=== PATIENT | male | born 1985 | race Caucasian/White ===

== ENCOUNTER 2016-05-20 10:12 | Inpatient (IN) | payer SELFPAY ==
[~2016-05-20] VITALS: Ht 182.9 cm; Wt 86.2 kg
[2016-05-20] VITALS (7 sets, daily range): BP systolic 125–148; BP diastolic 71–98; PULSE 89–119; RESP 16; TEMP 96.7–99.2; O2SAT 97–100
[~2016-05-20 10:12] MED LIST: BACT800T5 PO; CLIN150 PO; IBUP600T26 PO
[2016-05-20] MEDS ORDERED: ACETAMINOPHEN/HYDROcodone 325 MG/5 MG TAB PO ONE (11:00)
[2016-05-20] MEDS ORDERED: VANCOMYCIN INJ 1,000 MG in SODIUM CHLOR 0.9% 250 ML INJ 250 ML IV ONE (11:00)
--- NOTE | 2016-05-20 11:03 | PD ---
HPI Chief Complaint: Injury Time Seen by Provider: 10:30 Travel History International Travel<30 days: No Contact w/Intl Traveler<30days: No Traveled to known affect area: No History of Present Illness HPI This patient complains of injury and infection to his right foot. He says that 4 days ago he dropped a chainsaw from a height of about 2 feet onto his right foot. Chainsaw which she had not operating at the time. Shortly after it became red and swollen and started having red streaks going up his leg. He reports subjective fever. Symptoms severity is moderate. No alleviating factors. He denies medical history or any history of IV drug abuse. PFSH Past Medical History Medical History: Denies Significant Hx Diminished Hearing: No Tetanus Vaccination: < 5 Years Past Surgical History Surgical History: No Previous Surgery Social History Alcohol Use: No Tobacco Use: No Substance Use: No Allergies-Medications (Allergen,Severity, Reaction): Coded Allergies: *MDRO Multi-Drug Resistant Organism (Unverified Adverse Reaction, Unknown , 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 Reported Meds & Prescriptions Reported Meds & Active Scripts Active No Active Prescriptions or Reported Medications Review of Systems General / Constitutional: Positive: Fever Eyes: No: Visual changes HENT: No: Headaches Cardiovascular: No: Chest Pain or Discomfort Respiratory: No: Shortness of Breath Gastrointestinal: No: Abdominal Pain Genitourinary: No: Dysuria Musculoskeletal: Positive: Edema, Pain Skin: No Rash Neurologic: No: Weakness Psychiatric: No: Depression Endocrine: No: Polydipsia Hematologic/Lymphatic: No: Easy Bruising Physical Exam Narrative GENERAL: Well-nourished, well-developed patient with right foot pain and swelling . SKIN: Warm and dry. HEAD: Atraumatic. Normocephalic. EYES: Pupils equal and round. No scleral icterus. No injection or drainage. ENT: No nasal bleeding or discharge. Mucous membranes pink and moist. NECK: Trachea midline. No JVD. CARDIOVASCULAR: Regular rate and rhythm. No murmur appreciated. RESPIRATORY: No accessory muscle use. Clear to auscultation. Breath sounds equal bilaterally. GASTROINTESTINAL: Abdomen soft, non-tender, nondistended. Hepatic and splenic margins not palpable. MUSCULOSKELETAL: Patient has a large abscess on the dorsum of the right foot. It is fluctuant. No active drainage. He has macular erythema across the foot. He is got lymphangitis spreading up the right leg to the level of the distal thigh. No clubbing. No cyanosis. No edema. NEUROLOGICAL: Awake and alert. No obvious cranial nerve deficits. Motor grossly within normal limits. Normal speech. PSYCHIATRIC: Appropriate mood and affect; insight and judgment normal. Data Data Last Documented VS Vital Signs Date Time Temp Pulse Resp B/P Pulse Ox O2 Delivery O2 Flow Rate FiO2 05/20/16 10:22 16 100 Room Air 05/20/16 10:18 99.2 119 148/98 Orders Iv Access Insert/Monitor (05/20/16 10:55) Complete Blood Count With Diff (05/20/16 10:55) Basic Metabolic Panel (Bmp) (05/20/16 10:55) Wound Culture And Gram Stain (05/20/16 10:55) Foot, Complete ([id number]) (05/20/16 ) Acetamin-Hydrocod 325-5 Mg (Pegram 5-325 (05/20/16 11:00) Vancomycin Inj (Vancomycin Inj) (05/20/16 11:00) Admit To Inpatient (05/20/16 ) Vital Signs (Adult) Q4H (05/20/16 11:46) Activity Oob With Assistance (05/20/16 11:46) Diet Regular Basic (05/20/16 Lunch) Sodium Chloride 0.9% Flush (Ns Flush) (05/20/16 12:00) Sodium Chloride 0.9% Flush (Ns Flush) (05/20/16 21:00) Ondansetron Inj (Zofran Inj) (05/20/16 12:00) Magnesium Hydroxide Liq (Milk Of Magnesi (05/20/16 12:00) Complete Blood Count With Diff (05/21/16 06:00) Heparin Inj (Heparin Inj) (05/20/16 12:00) Naloxone Inj (Narcan Inj) (05/20/16 12:00) Inpatient Certification (05/20/16 ) Vancomycin Consult Pharmacy (Vancomycin (05/20/16 12:00) Piperacil-Tazo 3.375 Gm Premix (Zosyn 3. (05/20/16 12:00) Admit Order (Ed Use Only) (05/20/16 11:51) Labs Laboratory Tests Test 05/20/16 11:00 White Blood Count 21.4 TH/MM3 Red Blood Count 5.77 MIL/MM3 Hemoglobin 15.9 GM/DL Hematocrit 47.9 % Mean Corpuscular Volume 82.9 FL Mean Corpuscular Hemoglobin 27.5 PG Mean Corpuscular Hemoglobin 33.1 % Concent Red Cell Distribution Width 13.2 % Platelet Count 332 TH/MM3 Mean Platelet Volume 8.2 FL Neutrophils (%) (Auto) 77.3 % Lymphocytes (%) (Auto) 12.6 % Monocytes (%) (Auto) 7.2 % Eosinophils (%) (Auto) 1.1 % Basophils (%) (Auto) 1.8 % Neutrophils # (Auto) 16.6 TH/MM3 Lymphocytes # (Auto) 2.7 TH/MM3 Monocytes # (Auto) 1.5 TH/MM3 Eosinophils # (Auto) 0.2 TH/MM3 Basophils # (Auto) 0.4 TH/MM3 CBC Comment DIFF FINAL Differential Comment Sodium Level 135 MEQ/L Potassium Level 4.6 MEQ/L Chloride Level 97 MEQ/L Carbon Dioxide Level 27.1 MEQ/L Anion Gap 11 MEQ/L Blood Urea Nitrogen 11 MG/DL Creatinine 1.30 MG/DL Estimat Glomerular Filtration 64 ML/MIN Rate Random Glucose 101 MG/DL Calcium Level 9.2 MG/DL [facility] Medical Decision Making Medical Screen Exam Complete: Yes Emergency Medical Condition: Yes Medical Record Reviewed: Yes Differential Diagnosis Foot abscess, cellulitis, sepsis Narrative Course I have reviewed the patient's electronic medical record. IV placed CBC shows leukocytosis of 21,000 Metabolic profile is normal Coagulation studies are normal We discussed incision and drainage and he gives verbal agreement to that. It is definitely necessary as he has a huge fluctuant abscess on his foot. Procedure note: I numbed up the right foot abscess with ethyl chloride spray. I incised it with an 11 blade scalpel. I drained out a very large quantity of thick pus. I obtained a wound culture. After draining out as much pus as possible procedure was ended. He tolerated it well. I gave him 2 pain pills I gave him 1 g IV vancomycin I reviewed his right foot x-rays which show soft tissue swelling without fracture I reviewed the case with hospitalist will admit This is too involved to treat as outpatient with oral antibiotics. Diagnosis Primary Impression: Cellulitis of left foot Additional Impressions: Abscess of left foot Lymphangitis Admitting Information Admitting Physician Requests: Admit Scripts No Active Prescriptions or Reported Meds Marques Hamilton MD May 20, 2016 11:03
[2016-05-20 11:20] LABS: AUTOMATED NEUTROPHIL # 16.6 TH/MM3 (1.8-7.7); BASOPHIL # 0.4 TH/MM3 (0-0.2); BASOPHIL % 1.8 % (0.0-2.0); EOSINOPHIL # 0.2 TH/MM3 (0-0.4); EOSINOPHIL % 1.1 % (0.0-4.0); HEMATOCRIT 47.9 % (39.0-51.0); LYMPH % 12.6 % (9.0-44.0); LYMPHOCYTE # 2.7 TH/MM3 (1.0-4.8); MEAN CELL VOLUME 82.9 FL (80.0-100.0); MEAN CORPUSCULAR HEMOGLOBIN 27.5 PG (27.0-34.0); MEAN CORPUSCULAR HGB CONC 33.1 % (32.0-36.0); MONO % 7.2 % (0.0-8.0); NEUT % 77.3 % (16.0-70.0); PLATELET COUNT 332 TH/MM3 (150-450); RED BLOOD COUNT 5.77 MIL/MM3 (4.50-5.90); RED CELL DISTRIBUTION WIDTH 13.2 % (11.6-17.2); WHITE BLOOD COUNT 21.4 TH/MM3 (4.0-11.0)
[2016-05-20 11:23] LABS: HEMO FLAGS DIFF FINAL
[2016-05-20 11:34] LABS: POTASSIUM 4.6 MEQ/L (3.5-5.1)
--- NOTE | 2016-05-20 11:36 | RADHPO ---
EXAM DATE/TIME: 05/20/2016 10:59 [facility] COMPARISON: No previous studies available for comparison. INDICATIONS : Patient dropped chain saw on anterior left 2nd thru 4th metatarsal area 5 days ago: now red swollen and draining with reddness traveling up his lower leg. MEDICAL HISTORY : None. SURGICAL HISTORY : None. ENCOUNTER: Subsequent ACUITY: 4 - 6 days PAIN SCORE: 10/10 LOCATION: Left foot anterior FINDINGS: There is diffuse soft tissue swelling around the foot. However, the bony structures are grossly intac t. No definite acute fracture or joint dislocation is demonstrated. No foreign bodies are demonstrate d. CONCLUSION: Diffuse soft tissue swelling. Tito Briseno MD on May 20, 2016 at 11:34 Board Certified Radiologist. This report was verified electronically.
[2016-05-20 11:39] LABS: BICARBONATE 27.1 MEQ/L (21.0-32.0)
[2016-05-20] MEDS ORDERED: Vancomycin Consult Pharmacy 1 EA OTHER SCH (12:00)
[2016-05-20] MEDS ORDERED: ONDANSETRON HCL 4 MG/2 ML VIAL IVP PRN (12:00)
[2016-05-20] MEDS: HEPARIN SODIUM - SQ 10,000 UNITS/ML VIAL SQ SCH (12:00)
[2016-05-20] MEDS ORDERED: NALOXONE HCL 0.4 MG/ML AMP IV PRN (12:00)
[2016-05-20] MEDS ORDERED: MAGNESIUM HYDROXIDE SUSP 30 ML CUP PO PRN (12:00)
[2016-05-20] MEDS: PIPERACIL-TAZO 3.375 GM PREMIX 50 ML IV SCH ×2 (12:01→18:30)
--- NOTE | 2016-05-20 14:44 | HHI.HP ---
[facility] No Primary Care Physician Admission Diagnosis L foot cellulitis/abcess with lymphangitis Diagnoses: (1) Lymphangitis (2) Abscess of left foot (3) Cellulitis of left foot (4) Sepsis Chief Complaint: left foot wound/infection Travel History International Travel<30 Days: No Contact w/Intl Traveler <30 Da: No Traveled to Known Affected Are: No Sepsis Criteria SIRS Criteria (2 or more): Heart rate over 90, WBC > 96273, < 4000 or > 10% bands Sepsis Criteria (SIRS+source): Infect source susp/known Criteria Outcome: Meets sepsis criteria History of Present Illness The patient is a 31-year-old male who presented to the emergency department for evaluation of increased pain and swelling of his left foot. He states that on he was using a chainsaw and dropped the chainsaw onto his foot. Change was not running at the time. He states that over the next few days he developed increasing redness, swelling, and pain in the left foot. There was no drainage prior to arrival at the ER. Incision and drainage was done in the ER and a large amount of pustular material was expressed. He does report subjective fever. Patient has no other complaints at this time. Review of Systems Constitutional: COMPLAINS OF: Fever, DENIES: Chills, Night Sweats Eyes: DENIES: Blurred vision, Vision loss Ears, nose, mouth, throat: DENIES: Hearing loss Respiratory: DENIES: Cough, Wheezing, Sputum production, Shortness of breath Cardiovascular: DENIES: Chest pain, Palpitations, Dyspnea on Exertion, Lower Extremity Edema Gastrointestinal: DENIES: Abdominal pain, Constipation, Diarrhea, Nausea, Vomiting Genitourinary: DENIES: Urinary frequency, Urinary incontinence, Urgency, Hematuria, Dysuria, Nocturia Musculoskeletal: DENIES: Joint pain, Muscle aches Integumentary: DENIES: Pruritus Hematologic/lymphatic: DENIES: Bruising Neurologic: DENIES: Headache Past Family Social History Past Medical History Denies Past Surgical History Denies Reported Medications None Allergies: Coded Allergies: *MDRO Multi-Drug Resistant Organism (Unverified Adverse Reaction, Unknown , 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 Family History Denies Social History Quit smoking 4 months ago. Reports occasional alcohol use. Denies illicit drug use. Physical Exam Vital Signs Vital Signs Date Time Temp Pulse Resp B/P Pulse Ox O2 Delivery O2 Flow Rate FiO2 05/20/16 12:02 95 16 129/75 97 Room Air 05/20/16 10:22 16 100 Room Air 05/20/16 10:18 99.2 119 16 148/98 100 Physical Exam GENERAL: Well-nourished, well-developed [] in no acute distress. HEENT: Normocephalic, atraumatic. Pupils equal, round and reactive. Extraocular movements intact. No scleral icterus. No injection or drainage. Oropharynx is clear. Mucous membranes are moist. CARDIOVASCULAR: Regular rate and rhythm without murmurs, gallops, or rubs. RESPIRATORY: Clear to auscultation. No wheezes, rales, or rhonchi. Breathing is non-labored. GASTROINTESTINAL: Abdomen soft, non-tender, nondistended. EXTREMITIES: No right lower extremity edema. Left foot with significant erythema surrounding a central wound with pustular drainage. The dorsum of the left foot is swollen. PSYCH: Alert and oriented x 3. Laboratory Laboratory Tests Test 05/20/16 11:00 White Blood Count 21.4 Red Blood Count 5.77 Hemoglobin 15.9 Hematocrit 47.9 Mean Corpuscular Volume 82.9 Mean Corpuscular Hemoglobin 27.5 Mean Corpuscular Hemoglobin 33.1 Concent Red Cell Distribution Width 13.2 Platelet Count 332 Mean Platelet Volume 8.2 Neutrophils (%) (Auto) 77.3 Lymphocytes (%) (Auto) 12.6 Monocytes (%) (Auto) 7.2 Eosinophils (%) (Auto) 1.1 Basophils (%) (Auto) 1.8 Neutrophils # (Auto) 16.6 Lymphocytes # (Auto) 2.7 Monocytes # (Auto) 1.5 Eosinophils # (Auto) 0.2 Basophils # (Auto) 0.4 CBC Comment DIFF FINAL Differential Comment Sodium Level 135 Potassium Level 4.6 Chloride Level 97 Carbon Dioxide Level 27.1 Anion Gap 11 Blood Urea Nitrogen 11 Creatinine 1.30 Estimat Glomerular Filtration 64 Rate Random Glucose 101 Calcium Level 9.2 Date/Time Procedure Status Source Growth 05/20/16 11:00 Gram Stain Received Wound Foot Pending 05/20/16 11:00 Wound Culture Received Wound Foot Pending Result Diagram: 05/20/16 1100 05/20/16 1100 Imaging Last Impressions Foot X-Ray 05/20/16 0000 Signed Impressions: Service Date/Time: April 10:59 - CONCLUSION: Diffuse soft tissue swelling. Tito Briseno MD Assessment and Plan Assessment and Plan 1. Cellulitis/abscess, left foot: Status post incision and drainage in the ER. Continue IV antibiotics. Continue pain control. Consult podiatry. 2. DVT prophylaxis: Lovenox. Marques Kaye MD May 20, 2016 14:44
[2016-05-20] MEDS ORDERED: ACETAMINOPHEN/HYDROcodone 325 MG/5 MG TAB PO PRN (14:45)
[2016-05-20] MEDS: ACETAMINOPHEN/HYDROcodone 325 MG/7.5 MG TAB PO PRN ×2 (16:58→22:50)
--- NOTE | 2016-05-20 19:02 | PD.CONS ---
History of Present Illness Service Podiatry Consult Requested By Dr Kaye Reason for Consult Abscess L foot Primary Care Physician No Primary Care Physician Diagnoses: History of Present Illness 31-year-old male seen with increasing pain, redness, and swelling of his left foot. He states that on 05/15/16 he was using a chainsaw and dropped the chainsaw onto his foot. He says the saw was not running at the time. He states that over the next few days he developed increasing redness, swelling, and pain in the left foot. He says the blackened area in the center just started looking this way yesterday and redness up to his groin is what brought him in, along with increasing pain. here was no drainage prior to arrival at the ER. Incision and drainage was done in the ER and a large amount of pustular material was expressed. He does report subjective fever. Patient has no other complaints at this time. Past Family Social History Allergies: Coded Allergies: *MDRO Multi-Drug Resistant Organism (Unverified Adverse Reaction, Unknown , 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 Past Medical History denies Past Surgical History denies Active Ordered Medications Current Medications Medications (Trade) Dose Ordered Sig/Bonny Route Start Time Stop Time Status Last Admin (NS Flush) 2 ml UNSCH PRN FLUSH 05/20/16 12:00 (NS Flush) 2 ml BID FLUSH 05/20/16 21:00 (Zofran Inj) 4 mg Q6H PRN IVP 05/20/16 12:00 (Milk Of Magnesia Liq) 30 ml Q12H PRN PO 05/20/16 12:00 (Heparin Inj) 5,000 units Q12H SQ 05/20/16 12:00 05/20/16 12:00 Naloxone HCl 0.4 mg 0.4 mg UNSCH PRN IV 05/20/16 12:00 Pharmacy Profile Note 0 ml @ 0 mls/hr UNSCH OTHER 05/20/16 12:00 Piperacillin Sod/ Tazobactam Sod 50 ml @ 100 mls/hr Q6H IV 05/20/16 12:00 05/20/16 18:30 (Vancomycin Inj/ NS 250 ml Inj) 250 ml @ 250 mls/hr Q12H IV 05/20/16 23:00 Miscellaneous Information SPECIFIC LAB TO BE DRAWN:VANCOMY... ONCE ONCE XX 05/21/16 22:45 05/21/16 22:46 ([place] 5-325 Mg) 1 tab Q4H PRN PO 05/20/16 14:45 ([place] 7.5-325 Mg) 1 tab Q4H PRN PO 05/20/16 14:45 05/20/16 16:58 Family History denies Social History used to smoke, no drugs, occasional alcohol Physical Exam Vital Signs Vital Signs Date Time Temp Pulse Resp B/P Pulse Ox O2 Delivery O2 Flow Rate FiO2 05/20/16 16:00 96.8 05/20/16 14:00 97.3 93 16 125/82 98 05/20/16 12:02 95 16 129/75 97 Room Air 05/20/16 10:22 16 100 Room Air 05/20/16 10:18 99.2 119 16 148/98 100 Physical Exam Neurovascularly intact. Severe pain to dorsal medial left midfoot area with large 2cm diameter necrotic area, very foul odor, milky purulence present. A poke hole area is noted in center of necrotic tissue from ED culture. Ascending streaking erythema to groin area with concentrated erythema surrounding the EHL area at midfoot. Upon I&D, purulent material is expressed from what appears to be EHL tendon sheath both distally and proximally. Able to flex and extend digits. Laboratory Laboratory Tests Test 05/20/16 11:00 White Blood Count 21.4 Red Blood Count 5.77 Hemoglobin 15.9 Hematocrit 47.9 Mean Corpuscular Volume 82.9 Mean Corpuscular Hemoglobin 27.5 Mean Corpuscular Hemoglobin 33.1 Concent Red Cell Distribution Width 13.2 Platelet Count 332 Mean Platelet Volume 8.2 Neutrophils (%) (Auto) 77.3 Lymphocytes (%) (Auto) 12.6 Monocytes (%) (Auto) 7.2 Eosinophils (%) (Auto) 1.1 Basophils (%) (Auto) 1.8 Neutrophils # (Auto) 16.6 Lymphocytes # (Auto) 2.7 Monocytes # (Auto) 1.5 Eosinophils # (Auto) 0.2 Basophils # (Auto) 0.4 CBC Comment DIFF FINAL Differential Comment Sodium Level 135 Potassium Level 4.6 Chloride Level 97 Carbon Dioxide Level 27.1 Anion Gap 11 Blood Urea Nitrogen 11 Creatinine 1.30 Estimat Glomerular Filtration 64 Rate Random Glucose 101 Calcium Level 9.2 Date/Time Procedure Status Source Growth 05/20/16 11:00 Gram Stain Received Wound Foot Pending 05/20/16 11:00 Wound Culture Received Wound Foot Pending Result Diagram: 05/20/16 1100 05/20/16 1100 Imaging Last Impressions Foot X-Ray 05/20/16 0000 Signed Impressions: Service Date/Time: April 10:59 - CONCLUSION: Diffuse soft tissue swelling. Tito Briseno MD Assessment and Plan Assessment and Plan Deep abscess L foot To transfer to [facility] for I&D tomorrow with Dr Huitron Discussed with patient I felt that a more thorough bedside I&D was necessary to gain further wound stability until surgery is able to occur. Incision was made with #15 and necrotic tissue excised from dorsal wound area centrally using scissor/pickup. Purulence expressed and wound copiously irrigated with wound wash, followed by betadine wet to dry dressing applied. Continue IV antibiotics. Discussed Condition With Rhona Kaye and Oleksandr Johnson DPM May 20, 2016 19:02
[2016-05-20] MEDS: VANCOMYCIN 1,000 MG/NS 250 ML IV SCH ×2 (22:56)
[2016-05-20] MEDS: SODIUM CHLORIDE 0.9% FLUSH 5 ML FLUSH FLUSH SCH (22:56)
[2016-05-21] MEDS: PIPERACIL-TAZO 3.375 GM PREMIX 50 ML IV SCH ×4 (01:49→18:00)
[2016-05-21] MEDS: HEPARIN SODIUM - SQ 10,000 UNITS/ML VIAL SQ SCH (01:51)
[2016-05-21 04:49] VITALS: BP 127/71; PULSE 88; RESP 16; TEMP 98.1; O2SAT 98
--- NOTE | 2016-05-21 07:02 | PD.POD ---
Subjective Pain score: 3 Remarks left foot pain remains the same Past Med/Surg/Social History Social History Smoking Status: Former Smoker Objective Vital Signs Vital Signs Date Time Temp Pulse Resp B/P Pulse Ox O2 Delivery O2 Flow Rate FiO2 05/21/16 04:49 98.1 88 16 127/71 98 05/20/16 23:09 98.9 94 16 129/71 100 05/20/16 21:15 97.5 104 16 148/78 100 05/20/16 20:35 96.7 89 16 137/75 100 05/20/16 16:00 96.8 05/20/16 14:00 97.3 93 16 125/82 98 05/20/16 12:02 95 16 129/75 97 Room Air 05/20/16 10:22 16 100 Room Air 05/20/16 10:18 99.2 119 16 148/98 100 Coded Allergies: *MDRO Multi-Drug Resistant Organism (Unverified Adverse Reaction, Unknown , 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 Medications and IVs Administered Medications Medications (Trade) Dose Ordered Sig/Bonny Route PRN Reason Start Time Stop Time Status Last Admin Dose Admin IV Flush (NS Flush) 2 ml BID FLUSH 05/20/16 21:00 05/20/16 22:56 Heparin Sodium (Porcine) 5000 units 5,000 units Q12H SQ 05/20/16 12:00 05/21/16 01:51 Piperacillin Sod/ Tazobactam Sod 50 ml @ 100 mls/hr Q6H IV 05/20/16 12:00 05/21/16 06:11 Vancomycin HCl/ Sodium Chloride (Vancomycin Inj/ NS 250 ml Inj) 250 ml @ 250 mls/hr Q12H IV 05/20/16 23:00 05/20/16 22:56 Acetaminophen/ Hydrocodone Bitart ([place] 7.5-325 Mg) 1 tab Q4H PRN PO PAIN SCALE 7 TO 10 05/20/16 14:45 05/20/16 22:50 Other Results Laboratory Tests Test 05/20/16 11:00 White Blood Count 21.4 TH/MM3 Red Blood Count 5.77 MIL/MM3 Hemoglobin 15.9 GM/DL Hematocrit 47.9 % Mean Corpuscular Volume 82.9 FL Mean Corpuscular Hemoglobin 27.5 PG Mean Corpuscular Hemoglobin 33.1 % Concent Red Cell Distribution Width 13.2 % Platelet Count 332 TH/MM3 Mean Platelet Volume 8.2 FL Neutrophils (%) (Auto) 77.3 % Lymphocytes (%) (Auto) 12.6 % Monocytes (%) (Auto) 7.2 % Eosinophils (%) (Auto) 1.1 % Basophils (%) (Auto) 1.8 % Neutrophils # (Auto) 16.6 TH/MM3 Lymphocytes # (Auto) 2.7 TH/MM3 Monocytes # (Auto) 1.5 TH/MM3 Eosinophils # (Auto) 0.2 TH/MM3 Basophils # (Auto) 0.4 TH/MM3 CBC Comment DIFF FINAL Differential Comment Laboratory Tests Test 05/20/16 11:00 Sodium Level 135 MEQ/L Potassium Level 4.6 MEQ/L Chloride Level 97 MEQ/L Carbon Dioxide Level 27.1 MEQ/L Anion Gap 11 MEQ/L Blood Urea Nitrogen 11 MG/DL Creatinine 1.30 MG/DL Estimat Glomerular Filtration 64 ML/MIN Rate Random Glucose 101 MG/DL Calcium Level 9.2 MG/DL Microbiology Date/Time Procedure Status Source Growth 05/20/16 11:00 Gram Stain Received Wound Foot Pending 05/20/16 11:00 Wound Culture Received Wound Foot Pending Last 72 hours Impressions Foot X-Ray 05/20/16 0000 Signed Impressions: Service Date/Time: April 10:59 - CONCLUSION: Diffuse soft tissue swelling. Tito Briseno MD Exam-Podiatry Constitutional Details left foot severe redness edema central eschar with necrosis dorsum foot severe pain with pressure, redness localized to the foot, pulses intact, no crepitus with ROM ft and ankle Assessment & Plan A/P Left foot ulcer abscess OR today for I and D. Reviewed risks and benefits. IV ABX for now, possible 2-3 weeks pending WBC trend and C and S. Bhupendra Huitron DPM May 21, 2016 07:02
[2016-05-21 07:26] LABS: AUTOMATED NEUTROPHIL # 9.6 TH/MM3 (1.8-7.7); BASOPHIL # 0.1 TH/MM3 (0-0.2); BASOPHIL % 0.8 % (0.0-2.0); EOSINOPHIL # 0.4 TH/MM3 (0-0.4); EOSINOPHIL % 2.8 % (0.0-4.0); HEMO FLAGS DIFF FINAL; LYMPH % 18.8 % (9.0-44.0); LYMPHOCYTE # 2.6 TH/MM3 (1.0-4.8); MEAN CELL VOLUME 82.7 FL (80.0-100.0); MEAN CORPUSCULAR HEMOGLOBIN 28.4 PG (27.0-34.0); MEAN CORPUSCULAR HGB CONC 34.4 % (32.0-36.0); MONO % 9.3 % (0.0-8.0); NEUT % 68.3 % (16.0-70.0); PLATELET COUNT 324 TH/MM3 (150-450); RED BLOOD COUNT 4.96 MIL/MM3 (4.50-5.90); RED CELL DISTRIBUTION WIDTH 13.8 % (11.6-17.2)
[2016-05-21 08:00] VITALS: BP 127/69; PULSE 94; RESP 18; TEMP 98.2; O2SAT 98
[2016-05-21] MEDS: ACETAMINOPHEN/HYDROcodone 325 MG/7.5 MG TAB PO PRN ×3 (08:45→20:23)
[2016-05-21] MEDS: SODIUM CHLORIDE 0.9% FLUSH 5 ML FLUSH FLUSH SCH ×2 (09:00→20:52)
[2016-05-21] MEDS ORDERED: TEMAZEPAM 15 MG CAP PO PRN (09:30)
[2016-05-21] MEDS ORDERED: ONDANSETRON HCL 4 MG/2 ML VIAL IV PRN (09:30)
--- NOTE | 2016-05-21 09:31 | HHI.PR ---
Subjective Remarks Follow-up left foot ulcer/abscess 05/21/16-patient seen and examined, complained of left foot pain. Currently afebrile and nothing by mouth pending trip to the OR for incision and drainage by podiatry today. Objective Vitals Vital Signs Date Time Temp Pulse Resp B/P Pulse Ox O2 Delivery O2 Flow Rate FiO2 05/21/16 08:00 98.2 94 18 127/69 98 05/21/16 04:49 98.1 88 16 127/71 98 05/20/16 23:09 98.9 94 16 129/71 100 05/20/16 21:15 97.5 104 16 148/78 100 05/20/16 20:35 96.7 89 16 137/75 100 05/20/16 16:00 96.8 05/20/16 14:00 97.3 93 16 125/82 98 05/20/16 12:02 95 16 129/75 97 Room Air 05/20/16 10:22 16 100 Room Air 05/20/16 10:18 99.2 119 16 148/98 100 I/O 05/20/16 05/20/16 05/20/16 05/21/16 05/21/16 05/21/16 07:00 15:00 23:00 07:00 15:00 23:00 Intake Total 300 ml 480 ml 600 ml Output Total 350 ml Balance 300 ml 480 ml 250 ml Intake Oral 480 ml 600 ml IV Total 300 ml Output Urine Total 350 ml # Voids 1 # Bowel Movements 0 Result Diagram: 05/21/16 0712 05/21/16 0712 Imaging Last Impressions Foot X-Ray 05/20/16 0000 Signed Impressions: Service Date/Time: April 10:59 - CONCLUSION: Diffuse soft tissue swelling. Tito Briseno MD Objective Remarks GENERAL: NAD SKIN: Warm and dry. HEAD: Normocephalic. EYES: No scleral icterus. No injection or drainage. NECK: Supple, trachea midline. No JVD or lymphadenopathy. CARDIOVASCULAR: Regular rate and rhythm without murmurs, gallops, or rubs. RESPIRATORY: Breath sounds equal bilaterally. No accessory muscle use. GASTROINTESTINAL: Abdomen soft, non-tender, nondistended. MUSCULOSKELETAL: No cyanosis, or edema. dressing over left foot-neurovascular intact BACK: Nontender without obvious deformity. No CVA tenderness. A/P Problem List: (1) Lymphangitis ICD Code: I89.1 Status: Acute (2) Abscess of left foot ICD Code: L02.612 Status: Acute (3) Cellulitis of left foot ICD Code: L03.116 Status: Acute (4) Sepsis ICD Code: A41.9 Status: Acute Assessment and Plan 31-year-old male with 1-Left foot ulcer/abscess/cellulitis: Currently on IV antibiotics including vancomycin and Zosyn. Appreciate input from podiatry and plan for incision and drainage today 05/21/16. Monitor postop wound culture. Likely patient will need antibiotics 2-3 weeks postprocedure. If indicated will consult infectious disease specialist. Continue current pain management. 2-Leukocytosis: Secondary to above infectious process and treat as such 3-DVT prophylaxis: Hold heparin Addison Myles MD May 21, 2016 09:31 Addison Myles MD May 21, 2016 09:31
[2016-05-21] MEDS ORDERED: ACETAMINOPHEN 325 MG TAB PO PRN (10:00)
[2016-05-21] MEDS ORDERED: BUPIVACAINE HCL PF 0.25% 30 ML VIAL ONE (10:46)
[2016-05-21] MEDS ORDERED: GADODIAMIDE PF 287 MG/ML 20 ML VIAL (for RAD MRI) IV ONE (11:39)
[2016-05-21] MEDS: VANCOMYCIN 1,000 MG/NS 250 ML IV SCH ×2 (11:58)
[2016-05-21] MEDS ORDERED: LACTATED RINGER'S 1000 ML INJ 1,000 ML IV ONE (12:00)
[2016-05-21] MEDS ORDERED: ONDANSETRON HCL 4 MG/2 ML VIAL IV PUSH ONE (12:00)
[2016-05-21] MEDS ORDERED: PROPOFOL 200 MG/20 ML AMP IV ONE (12:00)
[2016-05-21] MEDS ORDERED: MIDAZOLAM HCL 2 MG/2 ML VIAL ONE (12:09)
[2016-05-21] MEDS ORDERED: ACETAMINOPHEN 1000 MG/100 ML VIAL IV ONE (12:09)
--- NOTE | 2016-05-21 12:11 | RADRPT ---
EXAM DATE/TIME: 05/21/2016 11:12 [facility] COMPARISON: FOOT LEFT COMPLETE ([id number]), May 20, 2016, 10:59. INDICATIONS : Osteomyelitis. CONTRAST: 16 cc Omniscan (gadodiamide) IV MEDICAL HISTORY : None. SURGICAL HISTORY : None. ENCOUNTER: Initial ACUITY: 4-6 days PAIN SCORE: 5/10 LOCATION: Left Foot TECHNIQUE: Multiplanar, multisequence MRI examination was performed without contrast and after the intravenous a dministration of gadolinium. FINDINGS: There is nonspecific soft tissue swelling dorsal to the metatarsals without fluid collection or mass or abscess. There is probable soft tissue discontinuity of the skin and overlying bandage ulceration or abrasion dorsal to the proximal base of the first metatarsal. Only structures are normal without e vidence of edema or osteomyelitis. CONCLUSION: Dorsal soft tissue swelling and soft tissue ulceration or defect dorsal medial along the base of the first metatarsal. No evidence of fluid collection or abscess formation and bony structures are intact with no evidence of osteomyelitis Pa Concepcion MD on May 21, 2016 at 12:00 Board Certified Radiologist. This report was verified electronically.
[2016-05-21] MEDS ORDERED: FAMOTIDINE 20 MG/2 ML VIAL ONE (12:12)
[2016-05-21] MEDS ORDERED: NEOMYCIN/POLYMYXIN 1 ML G.U. IRRIGANT IR ONE (12:48)
[2016-05-21] MEDS ORDERED: *morphine SULFATE 8 MG/ML PERIprocedure ONLY ONE ×2 (13:32→13:42)
[2016-05-21] MEDS ORDERED: fentaNYL CITRATE 250 MCG/5 ML AMP ONE (13:36)
[2016-05-21] MEDS ORDERED: DO NOT ADM ANY ANTICOAGULANT DRUGS XX PRN (14:00)
--- NOTE | 2016-05-21 15:21 | MP ---
cc: HAYDEE MOLINA DPM DATE OF SURGERY: 05/21/2016 PREOPERATIVE DIAGNOSIS Left foot abscess with ulcer. POSTOPERATIVE DIAGNOSIS Left foot abscess with ulcer. PROCEDURES PERFORMED Expansile incision, drainage and debridement left foot. ANESTHESIA General. TOURNIQUET TIME None. COMPLICATIONS None. ESTIMATED BLOOD LOSS Less than 50 mL. INJECTABLES 0.25% Marcaine plain, 20 cc. PROCEDURE IN DETAIL Under mild sedation the patient was brought into the operating room and placed on the operating table in the supine position. Following the induction of general anesthesia, local anesthesia was obtained about the patient's anterior ankle. The patient's left lower extremity was scrubbed, prepped and draped in the usual aseptic fashion. The foot was elevated and examined. There was noted to be extreme redness and a bulla-type formation with partial thickness ulceration at the dorsal aspect of the first metatarsal base. A linear incision was made at the apex of the necrotic ulcer and at the distal and proximal portion. Sharp and blunt dissection was carried down deep to the fascia. Digital dissection as well as sharp dissection took place, expanding the soft tissue planes at the dorsum of the foot of which there was noted to be a loculated abscess which was evacuated. All necrotic tissue was sharply excised. At the tendon sheath the EHL was noted to be intact. There was no extension of abscess into the tendon or bone. The joint appeared to be free with communication with the abscess. The wound was then flushed with one liter of normal saline pulse lavage. The wound was then loosely coapted and packed open. There was a central deficit measuring approximately 3.5 cm x 3.5 cm that probed down to the medial marginal vein, however, bone was not exposed. Packing placed. Xeroform placed on the wound, a compression bandage applied. All toes were pink. Minimal bleeding after compressive bandage. The patient is transferred from OR to PACU with all vital signs stable. Will continue to monitor the wound over the next 1-2 days. Given the severity of the infection there is a possibility he will need IV antibiotics. Will await the culture results and his progress. JIA Campbell/JORGE /1:26 PM /3:10 PM
[2016-05-21 15:27] VITALS: O2SAT 97
[2016-05-21 16:00] VITALS: BP 138/64; PULSE 90; RESP 18; TEMP 97.9; O2SAT 99
[2016-05-21 20:00] VITALS: BP 144/73; PULSE 99; RESP 18; TEMP 97.9; O2SAT 99
[2016-05-21 20:35] VITALS: O2SAT 98
[2016-05-21] MEDS ORDERED: PHARMACY ORDERED LAB XX ONE (22:45)
[2016-05-22] VITALS (8 sets, daily range): BP systolic 129–144; BP diastolic 60–98; PULSE 83–106; RESP 18–19; TEMP 97.5–99; O2SAT 96–100
[2016-05-22] MEDS: ACETAMINOPHEN/HYDROcodone 325 MG/7.5 MG TAB PO PRN ×4 (00:19→15:12)
[2016-05-22] MEDS: VANCOMYCIN 1,000 MG/NS 250 ML IV SCH ×6 (00:21→16:09)
[2016-05-22] MEDS: PIPERACIL-TAZO 3.375 GM PREMIX 50 ML IV SCH ×4 (00:27→17:06)
[2016-05-22] MEDS: HYDROmorphone HCL PF 1 MG/ML VIAL IV PUSH PRN ×5 (03:07→21:31)
[2016-05-22] MEDS: SODIUM CHLORIDE 0.9% FLUSH 5 ML FLUSH FLUSH SCH ×2 (08:44→20:33)
--- NOTE | 2016-05-22 09:15 | HHI.PR ---
Subjective Remarks Follow-up left foot ulcer/abscess 05/21/16-patient seen and examined, complained of left foot pain. Currently afebrile and nothing by mouth pending trip to the OR for incision and drainage by podiatry today. 05/22/16-patient seen and examined, no significant left foot pain. Afebrile and no complaint. s/p Expansile incision, drainage and debridement left foot. Case discussed with Dr. Lopez Objective Vitals Vital Signs Date Time Temp Pulse Resp B/P Pulse Ox O2 Delivery O2 Flow Rate FiO2 05/22/16 08:00 98.1 99 18 139/72 96 05/22/16 04:00 99.0 106 18 134/73 98 05/22/16 00:10 98.4 93 18 138/63 100 05/21/16 20:35 98 05/21/16 20:00 97.9 99 18 144/73 99 05/21/16 16:30 18 05/21/16 16:00 97.9 90 18 138/64 99 05/21/16 15:27 97 21 05/21/16 13:48 97.8 83 15 112/71 98 Room Air 05/21/16 13:30 83 15 123/76 98 Room Air 05/21/16 13:24 97.5 92 15 117/78 99 Room Air I/O 05/21/16 05/21/16 05/21/16 05/22/16 05/22/16 05/22/16 07:00 15:00 23:00 07:00 15:00 23:00 Intake Total 600 ml 450 ml 480 ml 480 ml Output Total 350 ml 10 ml 300 ml Balance 250 ml 440 ml 480 ml 180 ml Intake Oral 600 ml 480 ml 480 ml IV Total 150 ml 0 ml Other 300 ml Output Urine Total 350 ml 0 ml 300 ml Estimated Blood Loss 10 ml # Voids 1 # Bowel Movements 0 Result Diagram: 05/21/16 0712 05/21/16711 Objective Remarks GENERAL: NAD SKIN: Warm and dry. HEAD: Normocephalic. EYES: No scleral icterus. No injection or drainage. NECK: Supple, trachea midline. No JVD or lymphadenopathy. CARDIOVASCULAR: Regular rate and rhythm without murmurs, gallops, or rubs. RESPIRATORY: Breath sounds equal bilaterally. No accessory muscle use. GASTROINTESTINAL: Abdomen soft, non-tender, nondistended. MUSCULOSKELETAL: No cyanosis, or edema. dressing over left foot-neurovascular intact BACK: Nontender without obvious deformity. No CVA tenderness. Procedures 05/21/16 Status post Expansile incision, drainage and debridement left foot. A/P Problem List: (1) Lymphangitis ICD Code: I89.1 Status: Acute (2) Abscess of left foot ICD Code: L02.612 Status: Acute (3) Cellulitis of left foot ICD Code: L03.116 Status: Acute (4) Sepsis ICD Code: A41.9 Status: Acute Assessment and Plan 31-year-old male with 1-Left foot ulcer/abscess/cellulitis: s/p Expansile incision, drainage and debridement left foot 05/21/16 and management per podiatry. Currently on IV antibiotics including vancomycin and Zosyn. Monitor postop wound culture as pre wound culture positive for viridans strep group and staph. Likely patient will need antibiotics 2-3 weeks postprocedure. If indicated will consult infectious disease specialist. Continue current pain management. 2-Leukocytosis: Secondary to above infectious process and treat as such 3-DVT prophylaxis: Hold heparin Addison Myles MD May 22, 2016 09:15
--- NOTE | 2016-05-22 09:38 | PD.POD ---
Subjective Pain score: 7 Remarks left foot pain fluctuates, no new complaints Past Med/Surg/Social History Social History Smoking Status: Former Smoker Objective Vital Signs Vital Signs Date Time Temp Pulse Resp B/P Pulse Ox O2 Delivery O2 Flow Rate FiO2 05/22/16 08:00 98.1 99 18 139/72 96 05/22/16 04:00 99.0 106 18 134/73 98 05/22/16 00:10 98.4 93 18 138/63 100 05/21/16 20:35 98 05/21/16 20:00 97.9 99 18 144/73 99 05/21/16 16:30 18 05/21/16 16:00 97.9 90 18 138/64 99 05/21/16 15:27 97 21 05/21/16 13:48 97.8 83 15 112/71 98 Room Air 05/21/16 13:30 83 15 123/76 98 Room Air 05/21/16 13:24 97.5 92 15 117/78 99 Room Air Coded Allergies: *MDRO Multi-Drug Resistant Organism (Unverified Adverse Reaction, Unknown , 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 Exam-Podiatry Remarks left foot moderate redness edema, wound is open and draining, packing intact, no further necrosis, central ulcer dorsum foot 3cm 2cm down to fascia deep vein exposed redness localized to the foot, pulses intact, no crepitus with ROM ft and ankle Assessment & Plan A/P Left foot ulcer abscess SP for I and D 05/21. Reviewed cx strep and staph, WBC trending down, will change packing tomorrow, infection is still impressive, FU tomorrow Bhupendra Huitron DPM May 22, 2016 09:38
[2016-05-23] VITALS (8 sets, daily range): BP systolic 125–146; BP diastolic 64–75; PULSE 78–100; RESP 18–20; TEMP 97.4–98.2; O2SAT 96–99
[2016-05-23] MEDS: VANCOMYCIN 1,000 MG/NS 250 ML IV SCH ×8 (00:36→23:11)
[2016-05-23] MEDS: PIPERACIL-TAZO 3.375 GM PREMIX 50 ML IV SCH ×4 (00:39→17:23)
[2016-05-23] MEDS: ACETAMINOPHEN/HYDROcodone 325 MG/7.5 MG TAB PO PRN ×4 (01:34→20:56)
[2016-05-23] MEDS: HYDROmorphone HCL PF 1 MG/ML VIAL IV PUSH PRN ×5 (03:41→23:09)
[2016-05-23] MEDS ORDERED: PHARMACY ORDERED LAB XX ONE (07:45)
--- NOTE | 2016-05-23 08:56 | HHI.PR ---
Subjective Remarks Follow-up left foot ulcer/abscess 05/21/16-patient seen and examined, complained of left foot pain. Currently afebrile and nothing by mouth pending trip to the OR for incision and drainage by podiatry today. 05/22/16-patient seen and examined, no significant left foot pain. Afebrile and no complaint. s/p Expansile incision, drainage and debridement left foot. Case discussed with Dr. Lopez 05/23/16-patient seen and examined, stable and no complaints. Afebrile Objective Vitals Vital Signs Date Time Temp Pulse Resp B/P Pulse Ox O2 Delivery O2 Flow Rate FiO2 05/23/16 08:01 96 21 05/23/16 04:00 97.4 78 18 146/75 99 05/23/16 02:05 97 21 05/23/16 00:00 98.0 100 18 143/74 97 05/22/16 20:55 97.5 98 19 144/75 100 05/22/16 17:51 99 21 05/22/16 16:03 98.6 83 18 135/98 100 05/22/16 12:30 97 21 05/22/16 12:00 98.4 88 18 129/60 99 I/O 05/22/16 05/22/16 05/22/16 05/23/16 05/23/16 05/23/16 07:00 15:00 23:00 07:00 15:00 23:00 Intake Total 480 ml 480 ml 480 ml 180 ml Output Total 300 ml 1000 ml 250 ml Balance 180 ml -520 ml 480 ml -70 ml Intake Oral 480 ml 480 ml 480 ml 180 ml Output Urine Total 300 ml 1000 ml 250 ml # Voids 2 # Bowel Movements 0 0 Result Diagram: 05/21/16 0712 05/21/16 0712 Objective Remarks GENERAL: NAD SKIN: Warm and dry. HEAD: Normocephalic. EYES: No scleral icterus. No injection or drainage. NECK: Supple, trachea midline. No JVD or lymphadenopathy. CARDIOVASCULAR: Regular rate and rhythm without murmurs, gallops, or rubs. RESPIRATORY: Breath sounds equal bilaterally. No accessory muscle use. GASTROINTESTINAL: Abdomen soft, non-tender, nondistended. MUSCULOSKELETAL: No cyanosis, or edema. dressing over left foot-neurovascular intact BACK: Nontender without obvious deformity. No CVA tenderness. Procedures 05/21/16 Status post Expansile incision, drainage and debridement left foot. A/P Problem List: (1) Lymphangitis ICD Code: I89.1 Status: Acute (2) Abscess of left foot ICD Code: L02.612 Status: Acute (3) Cellulitis of left foot ICD Code: L03.116 Status: Acute (4) Sepsis ICD Code: A41.9 Status: Acute Assessment and Plan 31-year-old male with 1-Left foot ulcer/abscess/cellulitis: s/p Expansile incision, drainage and debridement left foot 05/21/16 and management per podiatry. Currently on IV antibiotics including vancomycin and Zosyn. Monitor postop wound culture as pre wound culture positive for viridans strep group and staph. Likely patient will need antibiotics 2-3 weeks postprocedure. If indicated will consult infectious disease specialist. Continue current pain management. Patient currently stable. 2-Leukocytosis: Secondary to above infectious process and treat as such; CBC pending this morning. 3-DVT prophylaxis: Resume heparin Addison Myles MD May 23, 2016 08:56
[2016-05-23] MEDS: SODIUM CHLORIDE 0.9% FLUSH 5 ML FLUSH FLUSH SCH ×2 (09:45→20:56)
--- NOTE | 2016-05-23 10:23 | PD.POD ---
Subjective Pain score: 7 Remarks left foot pain fluctuates, no new complaints, feels improvement Past Med/Surg/Social History Social History Smoking Status: Former Smoker Objective Vital Signs Vital Signs Date Time Temp Pulse Resp B/P Pulse Ox O2 Delivery O2 Flow Rate FiO2 05/23/16 08:02 98.0 91 20 141/66 98 05/23/16 08:01 96 21 05/23/16 04:00 97.4 78 18 146/75 99 05/23/16 02:05 97 21 05/23/16 00:00 98.0 100 18 143/74 97 05/22/16 20:55 97.5 98 19 144/75 100 05/22/16 17:51 99 21 05/22/16 16:03 98.6 83 18 135/98 100 05/22/16 12:30 97 21 05/22/16 12:00 98.4 88 18 129/60 99 Coded Allergies: *MDRO Multi-Drug Resistant Organism (Unverified Adverse Reaction, Unknown , 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 Physical Exam Remarks left foot moderate redness edema, wound is open and draining, packing intact, no further necrosis, central ulcer dorsum foot 3cm 2cm down to fascia deep vein exposed redness localized to the foot, pulses intact, no crepitus with ROM ft and ankle Assessment & Plan A/P Left foot ulcer abscess SP for I and D 05/21. Reviewed cx strep and staph, WBC trending down, new WBC for today, packing removed, infection is still impressive, but better, continue IV ABX for 1-2 weeks or until clinical improvement. Signing out to Dr Castañeda who will start cover 05/24. Bhupendra Huitron DPM May 23, 2016 10:23
[2016-05-23 10:38] LABS: BASOPHIL # 0.1 TH/MM3 (0-0.2); EOSINOPHIL # 0.5 TH/MM3 (0-0.4); EOSINOPHIL % 5.6 % (0.0-4.0); HEMATOCRIT 38.4 % (39.0-51.0); LYMPH % 33.7 % (9.0-44.0); LYMPHOCYTE # 3.2 TH/MM3 (1.0-4.8); MEAN CELL VOLUME 83.6 FL (80.0-100.0); MEAN CORPUSCULAR HEMOGLOBIN 27.8 PG (27.0-34.0); MEAN CORPUSCULAR HGB CONC 33.3 % (32.0-36.0); MONO % 7.2 % (0.0-8.0); NEUT % 52.5 % (16.0-70.0); PLATELET COUNT 363 TH/MM3 (150-450); RED BLOOD COUNT 4.59 MIL/MM3 (4.50-5.90); RED CELL DISTRIBUTION WIDTH 13.8 % (11.6-17.2); WHITE BLOOD COUNT 9.5 TH/MM3 (4.0-11.0)
[2016-05-23 10:40] LABS: HEMO FLAGS AUTO DIFF
[2016-05-23] MEDS: HEPARIN SODIUM - SQ 10,000 UNITS/ML VIAL SQ SCH (12:32)
[2016-05-23 14:56] LABS: SCAN/DIFF AUTO DIFF CONFIRMED
[2016-05-24 00:28] VITALS: BP 135/73; PULSE 81; RESP 20; TEMP 97.4; O2SAT 95
[2016-05-24] MEDS: HEPARIN SODIUM - SQ 10,000 UNITS/ML VIAL SQ SCH ×2 (00:29→12:24)
[2016-05-24] MEDS: PIPERACIL-TAZO 3.375 GM PREMIX 50 ML IV SCH ×4 (00:29→18:23)
[2016-05-24] MEDS: SODIUM CHLORIDE 0.9% FLUSH 5 ML FLUSH FLUSH PRN ×2 (02:18→06:15)
[2016-05-24 05:09] VITALS: BP 135/73; PULSE 65; RESP 20; TEMP 98.3; O2SAT 98
[2016-05-24] MEDS: ACETAMINOPHEN/HYDROcodone 325 MG/7.5 MG TAB PO PRN ×3 (05:22→22:02)
[2016-05-24 08:00] VITALS: BP 132/74; PULSE 84; RESP 18; TEMP 98.1; O2SAT 99
--- NOTE | 2016-05-24 08:19 | HHI.PR ---
Subjective Remarks Follow-up left foot ulcer/abscess 05/21/16-patient seen and examined, complained of left foot pain. Currently afebrile and nothing by mouth pending trip to the OR for incision and drainage by podiatry today. 05/22/16-patient seen and examined, no significant left foot pain. Afebrile and no complaint. s/p Expansile incision, drainage and debridement left foot. Case discussed with Dr. Lopez 05/23/16-patient seen and examined, stable and no complaints. Afebrile 05/24/16-patient seen and examined, complains of mild left foot pain otherwise afebrile and no other issues overnight. Objective Vitals Vital Signs Date Time Temp Pulse Resp B/P Pulse Ox O2 Delivery O2 Flow Rate FiO2 05/24/16 05:09 98.3 65 20 135/73 98 05/24/16 00:28 97.4 81 20 135/73 95 05/23/16 20:41 97.6 94 18 143/69 99 05/23/16 17:53 20 05/23/16 16:47 20 05/23/16 16:02 98.1 80 18 145/73 98 05/23/16 12:02 98.2 82 20 125/64 99 I/O 05/23/16 05/23/16 05/23/16 05/24/16 05/24/16 05/24/16 07:00 15:00 23:00 07:00 15:00 23:00 Intake Total 180 ml 720 ml Output Total 250 ml Balance -70 ml 720 ml Intake Oral 180 ml 720 ml Output Urine Total 250 ml # Voids 4 3 # Bowel Movements 0 2 1 Result Diagram: 05/23/16 1011 05/23/16 0800 Objective Remarks GENERAL: NAD SKIN: Warm and dry. HEAD: Normocephalic. EYES: No scleral icterus. No injection or drainage. NECK: Supple, trachea midline. No JVD or lymphadenopathy. CARDIOVASCULAR: Regular rate and rhythm without murmurs, gallops, or rubs. RESPIRATORY: Breath sounds equal bilaterally. No accessory muscle use. GASTROINTESTINAL: Abdomen soft, non-tender, nondistended. MUSCULOSKELETAL: No cyanosis, or edema. dressing over left foot-neurovascular intact BACK: Nontender without obvious deformity. No CVA tenderness. Procedures 05/21/16 Status post Expansile incision, drainage and debridement left foot. A/P Problem List: (1) Lymphangitis ICD Code: I89.1 Status: Acute (2) Abscess of left foot ICD Code: L02.612 Status: Acute (3) Cellulitis of left foot ICD Code: L03.116 Status: Acute (4) Sepsis ICD Code: A41.9 Status: Acute Assessment and Plan 31-year-old male with 1-Left foot ulcer/abscess/cellulitis: s/p Expansile incision, drainage and debridement left foot 05/21/16 and management per podiatry. Currently on IV antibiotics including vancomycin and Zosyn. Postop wound culture as well as pre wound culture positive for viridans strep group therefore will consult infectious disease specialist. Likely patient will need antibiotics 2-3 weeks postprocedure. Continue current pain management. Patient currently stable. 2-Leukocytosis: Now resolved. Secondary to above infectious process and treat as such; 3-DVT prophylaxis: Resume heparin Addison Myles MD May 24, 2016 08:18 Addison Myles MD May 24, 2016 08:18
[2016-05-24] MEDS: SODIUM CHLORIDE 0.9% FLUSH 5 ML FLUSH FLUSH SCH ×2 (09:09→20:20)
[2016-05-24] MEDS: VANCOMYCIN 1,000 MG/NS 250 ML IV SCH ×4 (09:09→17:28)
[2016-05-24] MEDS: HYDROmorphone HCL PF 1 MG/ML VIAL IV PUSH PRN ×2 (10:24→20:19)
--- NOTE | 2016-05-24 11:12 | PD.CONS ---
History of Present Illness Service Infectious disease Consult Requested By Dr Meet Myles Reason for Consult Evaluate patient with foot infection, status post I and D, advise on therapy Primary Care Physician No Primary Care Physician Diagnoses: History of Present Illness Patient seen and examined. Records reviewed. Patient is a 31-year-old male initially presented to [facility] for evaluation of redness, pain and swelling on his left foot. According to the patient about for 5 days prior to admission he dropped a chainsaw on his left foot. He did not have any open wound at that time but he had a bruise on the top of his left foot. On day of admission he started noticing redness and increased swelling associated with pain. He felt hot but he really didn't take his temperature. Her senna to the hospital for further evaluation and treatment. His initial WBC count was 21,000. MRI of the foot did not show any fluid collection, or osteomyelitis. The initial wound culture had quite negative staph and viridans strep. Patient was seen by podiatry, and he was transferred to the main hospital and underwent incision and drainage of the infection on the dorsum of his left foot. Operative cultures are growing viridans strep, pleomorphic gram-positive rashi, and a possible anaerobe. Patient clinically has improved. His WBC is down to normal. He remains afebrile. Pain on his left foot is improving. Infectious disease consultation has been requested to make recommendation regarding his treatment. Review of Systems Constitutional: DENIES: Fever, Chills, Night Sweats Eyes: DENIES: Eye pain Ears, nose, mouth, throat: DENIES: Nasal discharge, Oral lesions, Throat pain, Ear Pain, Running Nose, Sinus Pain Respiratory: DENIES: Cough, Shortness of breath Cardiovascular: DENIES: Chest pain, Palpitations, Syncope, Dyspnea on Exertion Gastrointestinal: DENIES: Abdominal pain, Diarrhea, Nausea, Vomiting Genitourinary: DENIES: Hematuria, Dysuria Musculoskeletal: DENIES: Joint pain, Joint Swelling Integumentary: DENIES: Pruritus, Rash Hematologic/lymphatic: DENIES: Lymphadenopathy Immunologic/allergic: DENIES: Urticaria Neurologic: DENIES: Headache Psychiatric: DENIES: Anxiety Past Family Social History Allergies: Coded Allergies: *MDRO Multi-Drug Resistant Organism (Unverified Adverse Reaction, Unknown , 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 Past Medical History None Past Surgical History None Active Ordered Medications Tylenol [place] Heparin Dilaudid MOM Zofran Zosyn Restoril Vancomycin Social History Ex-smoker Denies alcohol abuse Previous illicit drug use, but denies IV drug use Physical Exam Vital Signs Vital Signs Date Time Temp Pulse Resp B/P Pulse Ox O2 Delivery O2 Flow Rate FiO2 05/24/16 05:09 98.3 65 20 135/73 98 05/24/16 00:28 97.4 81 20 135/73 95 05/23/16 20:41 97.6 94 18 143/69 99 05/23/16 17:53 20 05/23/16 16:47 20 05/23/16 16:02 98.1 80 18 145/73 98 05/23/16 12:02 98.2 82 20 125/64 99 Physical Exam GENERAL: This is a well-nourished, well-developed male, awake and alert, in no apparent distress. SKIN: Cool and moist. No generalized rash or ecchymosis. He has multiple tattoos in his trunk and in his upper extremities. HEAD: Atraumatic. Normocephalic. No temporal or scalp tenderness. EYES: Pupils equal round and reactive. Extraocular motions intact. No scleral icterus. No injection or drainage. ENT: Nose without bleeding, or purulent drainage. Moist oral mucosa. Throat without erythema, or exudate. Uvula midline. Airway patent. NECK: Trachea midline. No JVD or lymphadenopathy. Supple, nontender, no meningeal signs. CARDIOVASCULAR: Regular rate and rhythm without murmurs, gallops, or rubs. RESPIRATORY: Clear to auscultation. Breath sounds equal bilaterally. No wheezes , rales, or rhonchi. GASTROINTESTINAL: Abdomen soft, flat, non-tender, nondistended. No hepato- splenomegaly, or palpable masses. No guarding. MUSCULOSKELETAL: Extremities without clubbing, cyanosis, or edema. L foot - there is an incision on dorsum with sutures in place, and there is an open wound in middle of the incision that is about the size of a quarter, with red base and very small amount of yellow tissue, no purulent drainage noted. There is erythema around the incision and wound and some mild edema. No odor. he moves all his toes without any problem. No lymphangitis seen in his L leg or thigh. No calf tenderness. Negative Homans sign bilaterally. NEUROLOGICAL: Awake and alert. Cranial nerves II through XII intact. Motor and sensory grossly within normal limits. Five out of 5 muscle strength in all muscle groups. Normal speech. PSYCH: Normal affect, calm, and cooperative. LINE: PIV with no evidence of infection Laboratory Date/Time Procedure Status Source Growth 05/21/16 12:50 Gram Stain - Final Resulted Wound Foot 05/21/16 12:50 Wound Culture - Preliminary Resulted Viridans Streptococcus Grp Pleomorphic Gram Positive Rods Result Diagram: 05/23/16 1011 05/23/16 0800 Imaging Foot MRI 05/21/16 0000 Signed Impressions: Service Date/Time: Saturday, May 21, 2016 11:12 - CONCLUSION: Dorsal soft tissue swelling and soft tissue ulceration or defect dorsal medial along the base of the first metatarsal. No evidence of fluid collection or abscess formation and bony structures are intact with no evidence of osteomyelitis Pa Concepcion MD Foot X-Ray 05/20/16 0000 Signed Impressions: Service Date/Time: April 10:59 - CONCLUSION: Diffuse soft tissue swelling. Tito Briseno MD Assessment and Plan Assessment and Plan IMPRESSION L foot infection, S/P I and D, ?started out as a contusion hematoma, got infected - C/S Strep viridans, Staph and possible anaerobes - looks better RECOMMENDATION Wound care per podiatry Continue Iv Abx for now Once C/S finalize, will determine po Abx - possible Augmentin, or Clinda, or Doxycycline Will need patient assistance to help with his Abx on D/C Thank you for this consultation Discussed Condition With Explained plan to the patient Laila Pardo MD May 24, 2016 11:12
--- NOTE | 2016-05-24 11:23 | PD.POD ---
Subjective Podiatric Problems s/p Left foot I and D with Dr Huitron. DOS 05/21/16 seen at bedside this am with mild pain. 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 Other Results Microbiology Date/Time Procedure Status Source Growth 05/21/16 12:50 Gram Stain - Final Complete Wound Foot 05/21/16 12:50 Wound Culture - Final Complete Eikenella Corrodens Mixed Anaerobes Laboratory Tests Test 05/20/16 05/23/16 05/23/16 11:00 08:00 10:11 Sodium Level 135 MEQ/L Potassium Level 4.6 MEQ/L Chloride Level 97 MEQ/L Carbon Dioxide Level 27.1 MEQ/L Anion Gap 11 MEQ/L Blood Urea Nitrogen 11 MG/DL Random Glucose 101 MG/DL Calcium Level 9.2 MG/DL Creatinine 1.10 MG/DL Estimat Glomerular Filtration 78 ML/MIN Rate Vancomycin Level Trough 11.8 MCG/ML White Blood Count 9.5 TH/MM3 Red Blood Count 4.59 MIL/MM3 Hemoglobin 12.8 GM/DL Hematocrit 38.4 % Mean Corpuscular Volume 83.6 FL Mean Corpuscular Hemoglobin 27.8 PG Mean Corpuscular Hemoglobin 33.3 % Concent Red Cell Distribution Width 13.8 % Platelet Count 363 TH/MM3 Mean Platelet Volume 7.9 FL Neutrophils (%) (Auto) 52.5 % Lymphocytes (%) (Auto) 33.7 % Monocytes (%) (Auto) 7.2 % Eosinophils (%) (Auto) 5.6 % Basophils (%) (Auto) 1.0 % Neutrophils # (Auto) 5.0 TH/MM3 Lymphocytes # (Auto) 3.2 TH/MM3 Monocytes # (Auto) 0.7 TH/MM3 Eosinophils # (Auto) 0.5 TH/MM3 Basophils # (Auto) 0.1 TH/MM3 CBC Comment AUTO DIFF Differential Comment AUTO DIFF CONFIRMED Exam-Podiatry Dermatological Exam Ulcers: Location/Measurements LLE Intact NVS Intact sutures. No exposed bone or tendon. Central wound is 100% granular. No active drainage. Erythema and edema resolving. Physical Exam Proprioception: Present Left lower extremity: Range of motion: normal Muscle strength/tone: FINDINGS: normal Affect: flat Assessment & Plan Diagnosis: (1) Abscess of left foot Status: Acute (2) Cellulitis of left foot Status: Acute A/P S/P Left foot I and D DOS 05/21/[address] Huitron, Improved. Plan for 2 -3 weeks of IV abx per Dr Huitron. dressing change carried out today. Will continue to f/u while inhouse. Rachelle Castañeda DPM May 24, 2016 11:23
[2016-05-24 12:00] VITALS: BP 127/70; PULSE 80; RESP 18; TEMP 98.1; O2SAT 97
[2016-05-24 20:58] VITALS: BP 140/84; PULSE 84; RESP 16; TEMP 97.9; O2SAT 99
[2016-05-25] MEDS: HYDROmorphone HCL PF 1 MG/ML VIAL IV PUSH PRN ×5 (00:31→22:28)
[2016-05-25] MEDS: HEPARIN SODIUM - SQ 10,000 UNITS/ML VIAL SQ SCH ×2 (00:31→11:12)
[2016-05-25] MEDS: PIPERACIL-TAZO 3.375 GM PREMIX 50 ML IV SCH ×4 (00:32→17:22)
[2016-05-25] MEDS: VANCOMYCIN 1,000 MG/NS 250 ML IV SCH ×6 (00:32→15:29)
[2016-05-25 00:44] VITALS: BP 115/77; PULSE 78; RESP 16; TEMP 97.8; O2SAT 98
[2016-05-25] MEDS: ACETAMINOPHEN/HYDROcodone 325 MG/7.5 MG TAB PO PRN ×5 (02:16→20:14)
[2016-05-25 06:10] VITALS: BP 128/61; PULSE 79; RESP 16; TEMP 97.6; O2SAT 97
[2016-05-25 08:00] VITALS: BP 127/58; PULSE 81; RESP 16; TEMP 97.7; O2SAT 99
[2016-05-25] MEDS: SODIUM CHLORIDE 0.9% FLUSH 5 ML FLUSH FLUSH SCH ×2 (09:22→21:26)
--- NOTE | 2016-05-25 10:29 | HHI.PR ---
Subjective Remarks Follow-up left foot ulcer/abscess 05/21/16-patient seen and examined, complained of left foot pain. Currently afebrile and nothing by mouth pending trip to the OR for incision and drainage by podiatry today. 05/22/16-patient seen and examined, no significant left foot pain. Afebrile and no complaint. s/p Expansile incision, drainage and debridement left foot. Case discussed with Dr. Lopez 05/23/16-patient seen and examined, stable and no complaints. Afebrile 05/24/16-patient seen and examined, complains of mild left foot pain otherwise afebrile and no other issues overnight. 05/25/16-patient seen and examined. Stable, afebrile. Pain to left foot control Objective Vitals Vital Signs Date Time Temp Pulse Resp B/P Pulse Ox O2 Delivery O2 Flow Rate FiO2 05/25/16 08:00 97.7 81 16 127/58 99 05/25/16 06:10 97.6 79 16 128/61 97 05/25/16 00:44 97.8 78 16 115/77 98 05/24/16 20:58 97.9 84 16 140/84 99 05/24/16 12:00 98.1 80 18 127/70 97 I/O 05/24/16 05/24/16 05/24/16 05/25/16 05/25/16 05/25/16 06:59 14:59 22:59 06:59 14:59 22:59 Intake Total 1520 ml 830 ml Output Total 1200 ml 900 ml Balance 320 ml -70 ml Intake Oral 1220 ml 480 ml IV Total 300 ml 350 ml Output Urine Total 1200 ml 900 ml # Bowel Movements 1 0 Result Diagram: 05/23/16 1011 05/25/16 0704 Objective Remarks GENERAL: NAD SKIN: Warm and dry. HEAD: Normocephalic. EYES: No scleral icterus. No injection or drainage. NECK: Supple, trachea midline. No JVD or lymphadenopathy. CARDIOVASCULAR: Regular rate and rhythm without murmurs, gallops, or rubs. RESPIRATORY: Breath sounds equal bilaterally. No accessory muscle use. GASTROINTESTINAL: Abdomen soft, non-tender, nondistended. MUSCULOSKELETAL: No cyanosis, or edema. dressing over left foot-neurovascular intact BACK: Nontender without obvious deformity. No CVA tenderness. Procedures 05/21/16 Status post Expansile incision, drainage and debridement left foot. A/P Problem List: (1) Lymphangitis ICD Code: I89.1 Status: Acute (2) Abscess of left foot ICD Code: L02.612 Status: Acute (3) Cellulitis of left foot ICD Code: L03.116 Status: Acute (4) Sepsis ICD Code: A41.9 Status: Acute Assessment and Plan 31-year-old male with 1-Left foot ulcer/abscess/cellulitis: s/p Expansile incision, drainage and debridement left foot 05/21/16 and management per podiatry. Currently on IV antibiotics including vancomycin and Zosyn. pre wound culture positive for viridans strep group however final wound culture positive for [place]. Appreciate input from infectious disease specialist. Likely patient will need antibiotics 2-3 weeks postprocedure. Continue current pain management. Patient currently stable. 2-Leukocytosis: Now resolved. Secondary to above infectious process and treat as such; 3-DVT prophylaxis: heparin Addison Myles MD May 25, 2016 10:29
--- NOTE | 2016-05-25 10:32 | HHI.DS ---
Discharge Summary Admission Date May 20, 2016 at 11:52 Discharge Date: May 25, 2016 Admitting Diagnosis L foot cellulitis/abcess with lymphangitis (1) Lymphangitis ICD Code: I89.1 (2) Abscess of left foot ICD Code: L02.612 (3) Cellulitis of left foot ICD Code: L03.116 (4) Sepsis ICD Code: A41.9 Procedures 05/21/16 Status post Expansile incision, drainage and debridement left foot. Brief History - From Admission The patient is a 31-year-old male who presented to the emergency department for evaluation of increased pain and swelling of his left foot. He states that on he was using a chainsaw and dropped the chainsaw onto his foot. Change was not running at the time. He states that over the next few days he developed increasing redness, swelling, and pain in the left foot. There was no drainage prior to arrival at the ER. Incision and drainage was done in the ER and a large amount of pustular material was expressed. He does report subjective fever. Patient has no other complaints at this time. CBC/BMP: 05/23/16 1011 05/25/16 0704 Significant Findings Laboratory Tests Test 05/23/16 05/23/16 05/25/16 08:00 10:11 07:04 Estimat Glomerular Filtration 78 ML/MIN (>89) 82 ML/MIN (>89) Rate Vancomycin Level Trough 11.8 MCG/ML (5.0-10.0) Hemoglobin 12.8 GM/DL (13.0-17.0) Hematocrit 38.4 % (39.0-51.0) Eosinophils (%) (Auto) 5.6 % (0.0-4.0) Eosinophils # (Auto) 0.5 TH/MM3 (0-0.4) Imaging Last Impressions Foot MRI 05/21/16 0000 Signed Impressions: Service Date/Time: Tuesday, May 21, 2016 11:12 - CONCLUSION: Dorsal soft tissue swelling and soft tissue ulceration or defect dorsal medial along the base of the first metatarsal. No evidence of fluid collection or abscess formation and bony structures are intact with no evidence of osteomyelitis Pa Concepcion MD Foot X-Ray 05/20/16 0000 Signed Impressions: Service Date/Time: April 10:59 - CONCLUSION: Diffuse soft tissue swelling. Tito Briseno MD PE at Discharge GENERAL: NAD SKIN: Warm and dry. HEAD: Normocephalic. EYES: No scleral icterus. No injection or drainage. NECK: Supple, trachea midline. No JVD or lymphadenopathy. CARDIOVASCULAR: Regular rate and rhythm without murmurs, gallops, or rubs. RESPIRATORY: Breath sounds equal bilaterally. No accessory muscle use. GASTROINTESTINAL: Abdomen soft, non-tender, nondistended. MUSCULOSKELETAL: No cyanosis, or edema. dressing over left foot-neurovascular intact BACK: Nontender without obvious deformity. No CVA tenderness. Hospital Course Patient admitted secondary to left foot ulcer/abscess for which he was started on IV antibiotics with consultation to podiatry. He underwent Expansile incision, drainage and debridement left foot 05/21/16. Pain management was provided accordingly. After post op wound culture was obtained, infectious disease patient was consulted. Vitals were monitored. DVT was provided. Patient was discharged in stable condition. Pt Condition on Discharge: Stable Discharge Disposition: Discharge Home Discharge Time: <= 30 minutes Discharge Instructions DIET: Follow Instructions for: Heart Healthy Diet Activities you can perform: Regular-No Restrictions Addison Myles MD May 25, 2016 10:32
[2016-05-25 12:00] VITALS: BP 120/57; PULSE 80; RESP 16; TEMP 98.1; O2SAT 97
[2016-05-25 16:00] VITALS: BP 131/65; PULSE 86; RESP 16; TEMP 97.7; O2SAT 97
[2016-05-25 20:00] VITALS: BP 112/77; PULSE 88; RESP 16; TEMP 98.2; O2SAT 98
[2016-05-26] VITALS: BP 125/69; PULSE 82; RESP 18; TEMP 98.1; O2SAT 98
[2016-05-26] MEDS: VANCOMYCIN 1,000 MG/NS 250 ML IV SCH ×4 (01:51→08:35)
[2016-05-26] MEDS: HEPARIN SODIUM - SQ 10,000 UNITS/ML VIAL SQ SCH ×2 (01:51→11:08)
[2016-05-26] MEDS: PIPERACIL-TAZO 3.375 GM PREMIX 50 ML IV SCH ×3 (01:51→11:00)
[2016-05-26] MEDS: ACETAMINOPHEN/HYDROcodone 325 MG/7.5 MG TAB PO PRN ×2 (01:52→08:34)
[2016-05-26 04:00] VITALS: BP 119/62; PULSE 75; RESP 18; TEMP 97.8; O2SAT 98
[2016-05-26] MEDS: HYDROmorphone HCL PF 1 MG/ML VIAL IV PUSH PRN ×2 (05:18→10:57)
[2016-05-26 08:00] VITALS: BP 136/86; PULSE 94; RESP 16; TEMP 98.1; O2SAT 97
[2016-05-26] MEDS: SODIUM CHLORIDE 0.9% FLUSH 5 ML FLUSH FLUSH SCH (08:35)
--- NOTE | 2016-05-26 11:01 | HHI.PR ---
Subjective Remarks Follow-up left foot ulcer/abscess 05/21/16-patient seen and examined, complained of left foot pain. Currently afebrile and nothing by mouth pending trip to the OR for incision and drainage by podiatry today. 05/22/16-patient seen and examined, no significant left foot pain. Afebrile and no complaint. s/p Expansile incision, drainage and debridement left foot. Case discussed with Dr. Lopez 05/23/16-patient seen and examined, stable and no complaints. Afebrile 05/24/16-patient seen and examined, complains of mild left foot pain otherwise afebrile and no other issues overnight. 05/25/16-patient seen and examined. Stable, afebrile. Pain to left foot control 05/26/16-patient seen and examined; would like to go home. No acute event overnight Objective Vitals Vital Signs Date Time Temp Pulse Resp B/P Pulse Ox O2 Delivery O2 Flow Rate FiO2 05/26/16 08:00 98.1 94 16 136/86 97 05/26/16 04:00 97.8 75 18 119/62 98 05/26/16 00:00 98.1 82 18 125/69 98 05/25/16 20:00 98.2 88 16 112/77 98 05/25/16 16:00 97.7 86 16 131/65 97 05/25/16 12:00 98.1 80 16 120/57 97 I/O 05/25/16 05/25/16 05/25/16 05/26/16 05/26/16 05/26/16 07:00 15:00 23:00 07:00 15:00 23:00 Intake Total 830 ml 720 ml 240 ml 350 ml Output Total 900 ml 300 ml Balance -70 ml 420 ml 240 ml 350 ml Intake Oral 480 ml 720 ml 240 ml IV Total 350 ml 350 ml Output Urine Total 900 ml 300 ml # Voids 3 3 # Bowel Movements 0 0 0 Result Diagram: 05/23/16 1011 05/25/16 0704 Imaging Last Impressions Foot MRI 05/21/16 0000 Signed Impressions: Service Date/Time: Saturday, May 21, 2016 11:12 - CONCLUSION: Dorsal soft tissue swelling and soft tissue ulceration or defect dorsal medial along the base of the first metatarsal. No evidence of fluid collection or abscess formation and bony structures are intact with no evidence of osteomyelitis Pa Concepcion MD Foot X-Ray 05/20/16 0000 Signed Impressions: Service Date/Time: April 10:59 - CONCLUSION: Diffuse soft tissue swelling. Tito Briseno MD Objective Remarks GENERAL: NAD SKIN: Warm and dry. HEAD: Normocephalic. EYES: No scleral icterus. No injection or drainage. NECK: Supple, trachea midline. No JVD or lymphadenopathy. CARDIOVASCULAR: Regular rate and rhythm without murmurs, gallops, or rubs. RESPIRATORY: Breath sounds equal bilaterally. No accessory muscle use. GASTROINTESTINAL: Abdomen soft, non-tender, nondistended. MUSCULOSKELETAL: No cyanosis, or edema. dressing over left foot-neurovascular intact BACK: Nontender without obvious deformity. No CVA tenderness. Procedures 05/21/16 Status post Expansile incision, drainage and debridement left foot. A/P Problem List: (1) Lymphangitis ICD Code: I89.1 Status: Acute (2) Abscess of left foot ICD Code: L02.612 Status: Acute (3) Cellulitis of left foot ICD Code: L03.116 Status: Acute (4) Sepsis ICD Code: A41.9 Status: Acute Assessment and Plan 31-year-old male with 1-Left foot ulcer/abscess/cellulitis/infection: s/p Expansile incision, drainage and debridement left foot 05/21/16 and management per podiatry. Currently on IV antibiotics including vancomycin and Zosyn. pre wound culture positive for viridans strep group however final wound culture positive for [place]. Appreciate input from infectious disease specialist. Awaiting final recommendation from infectious disease specialist. Continue current pain management. Patient currently stable. 2-Leukocytosis: Now resolved. 3-DVT prophylaxis: heparin Addison Myles MD May 26, 2016 11:01 Addison Myles MD May 26, 2016 11:01
[2016-05-26] MEDS ORDERED: AUGM500T7 PO (11:16)
[2016-05-26] MEDS ORDERED: LACTCHW3 CHEW (11:16)
== END 2016-05-26 13:01 | disposition home or self-care (01) | DRG 854 ==
LOC: PHED 10:12 → PHEDA 11:52 → PH3B 13:44 → N04B 21:13
PROVIDERS: ADMIT Hospitalist; ATTEND Hospitalist
PROC: 0H9NXZX Drainage of Left Foot Skin, External Approach, Diagnostic (ICD-10-PCS; 2016-05-20)
PROC: 0H9NXZZ Drainage of Left Foot Skin, External Approach (ICD-10-PCS; 2016-05-20)
PROC: 0JBR0ZZ Excision of Left Foot Subcutaneous Tissue and Fascia, Open Approach (ICD-10-PCS; principal; 2016-05-21 12:13)
DX: A41.9 Sepsis, unspecified organism (principal); L03.116 Cellulitis of left lower limb; L02.612 Cutaneous abscess of left foot; I89.1 Lymphangitis; Z87.891 Personal history of nicotine dependence
CPT/HCPCS: 10060; 73630; 73720; 80048; 80202; 82565; 85025; 86403; 87070; 87185; 87205; 96365; A9579; J0131; J1170; J1644; J2250; J2270; J2405; J2543; J3010; J3370; J7050; J7120